=== PATIENT | male | born 1955 | race Caucasian/White ===

== ENCOUNTER 2024-12-16 08:36 | Day surgery (SDC) | payer MEDICARE ==
[~2024-12-16 08:36] MED LIST: Midazolam 1 MG/ML 2 ML SDV ONE; Propofol 200 MG/20 ML SDV ONE; fentaNYL 50 MCG/ML SDV ONE
[2024-12-16] MEDS: Lactated Ringers 1,000 ML IV SCH (09:16)
== END 2024-12-16 11:21 | disposition home or self-care (01) ==
LOC: JP.SDS 08:36
PROVIDERS: ATTEND Surgery
DX: Z12.11 Encounter for screening for malignant neoplasm of colon (principal); Z88.0 Allergy status to penicillin; Z79.899 Other long term (current) drug therapy
CPT/HCPCS: 00812; 45378; J2250; J2704; J3010; J7120